=== PATIENT | female | born 1935 | race Caucasian/White ===

== ENCOUNTER 2020-02-06 22:41 | Emergency (ER) | payer MEDICARE, OTHER ==
[~2020-02-06] VITALS: Ht 157.5 cm; Wt 65.8 kg
--- NOTE | 2020-02-06 23:15 | NUR ---
PT AAOX4. MALTESE SPEAKING. RANJEET C/O R PINKY S/P FALL. NO ACUTE DISTRESS NOTED. VSS. AMBULATING WITH STEADY GAIT.
--- NOTE | 2020-02-06 23:17 | NUR ---
AWAITING FOR XRAY.
--- NOTE | 2020-02-06 23:27 | NUR ---
RADIOLOGY AT BEDSIDE
--- NOTE | 2020-02-07 00:09 | NUR ---
Patient discharged to home in stable condition. Written and verbal after care instructions given. Patient verbalizes understanding of instruction and RX. Pt ambulated with steady gait, vss.
[2020-02-07 00:10] VITALS: BP 152/73
== END 2020-02-07 00:11 | disposition home or self-care (01) ==
LOC: ER 22:48
DX: S62.646A Nondisplaced fracture of proximal phalanx of right little finger, initial encounter for closed fracture (principal); I10 Essential (primary) hypertension; Z60.2 Problems related to living alone; W18.39XA Other fall on same level, initial encounter; Y93.89 Activity, other specified; Y92.89 Other specified places as the place of occurrence of the external cause; Y99.8 Other external cause status
CPT/HCPCS: 73120-TC